=== PATIENT | male | born 1995 | race Hispanic/Latino ===

== ENCOUNTER 2017-11-09 10:36 | Emergency (ER) | payer SELFPAY ==
[2017-11-09 12:34] LABS: Hematocrit 50.8 % (35.5-45.6); Hemoglobin 17.7 gm/dl (11.8-15.2); Mean Corpuscular HGB Conc 35 % (32-34); Mean Corpuscular Hemoglobin 30 pg (28-32); Mean Corpuscular Volume 87 fl (84-94); Platelet Count 189 K/mm3 (140-440); Red Blood Count 5.83 M/mm3 (3.65-5.03); Red Cell Distribution Width 14.2 % (13.2-15.2)
[2017-11-09 12:45] LABS: BUN/Creatinine Ratio 14; Blood Urea Nitrogen 13 mg/dL (9-20); Calcium 9.3 mg/dL (8.4-10.2); Hemolysis Index 11
[2017-11-09 12:48] LABS: Bilirubin,Urine NEG (Negative); Blood,Urine NEG (Negative); Color,Urine Yellow (Yellow); Mucus,Urine 3+ /HPF; Urobilinogen,Urine < 2.0 mg/dL (<2.0)
[2017-11-09] MEDS ORDERED: CLEOCIN PO ONE (15:17)
[2017-11-09] MEDS ORDERED: ZOFRAN ODT PO ONE (15:17)
--- NOTE | 2017-11-09 15:19 | Emergency Department Report ---
HPI - General Chief Complaint: Nausea/Vomiting/Diarrhea Time Seen by Provider: 11/09/17 15:16 - HPI HPI: Patient reported nausea vomiting and diarrhea 3 days and is also here with his significant other who has a same symptoms. Last episode of vomiting was this morning. Patient has no diarrhea today. He is also reporting spider bite to his right forehead. Denies any fever or chills. Reports headache 10 out of 10 in rash to facial area for up to 10. O2 sats are achy. Nothing makes it better nothing makes it worse. He said he was having some abdominal cramping which is not experiencing at present. ED Past Medical Hx - Past Medical History Previous Medical History?: Yes Hx GERD: Yes - Surgical History Past Surgical History?: No - Family History Family history: no significant - Social History Smoking Status: Current Every Day Smoker Substance Use Type: Alcohol - Medications Home Medications: Home Medications Medication Instructions Recorded Confirmed Last Taken Type Dicyclomine [Bentyl] 20 mg PO Q8H PRN #12 tablet 11/09/17 Unknown Rx Ondansetron [Zofran Odt] 4 mg PO Q8HR PRN #12 tab.rapdis 11/09/17 Unknown Rx Sulfamethoxazole/Trimethoprim 1 each PO BID 10 Days #20 tablet 11/09/17 Unknown Rx [Bactrim DS TAB] ED Review of Systems ROS: Stated complaint: MIGRAINE/VOMIT/DIARRHEA/RASH Other details as noted in HPI Comment: All other systems reviewed and negative Constitutional: no symptoms reported ENT: denies: ear pain, throat pain, congestion Respiratory: no symptoms reported Cardiovascular: denies: chest pain, palpitations, dyspnea on exertion, edema, syncope, paroxysmal nocturnal dyspnea Gastrointestinal: denies: abdominal pain, nausea, vomiting, constipation, hematemesis, melena, hematochezia Genitourinary: denies: dysuria, hematuria, testicular pain, testicular mass Musculoskeletal: denies: back pain, joint swelling, arthralgia, myalgia Skin: rash Neurological: denies: headache, numbness, abnormal gait, vertigo Physical Exam - Physical Exam Vital Signs: Vital Signs 11/09/17 11:57 Temperature 97.8 F Pulse Rate 76 Respiratory 18 Rate Blood Pressure 135/58 O2 Sat by Pulse 97 Oximetry Vital Signs 11/09/17 11/09/17 11:57 17:44 Temperature 97.8 F Pulse Rate 76 71 Respiratory 18 16 Rate Blood Pressure 135/58 Blood Pressure 131/60 [Left] O2 Sat by Pulse 97 96 Oximetry General: This is a 22-year-old male well-nourished well-developed in no acute distress. ED Course Vital Signs 11/09/17 11:57 Temperature 97.8 F Pulse Rate 76 Respiratory 18 Rate Blood Pressure 135/58 O2 Sat by Pulse 97 Oximetry Vital Signs 11/09/17 11/09/17 11:57 17:44 Temperature 97.8 F Pulse Rate 76 71 Respiratory 18 16 Rate Blood Pressure 135/58 Blood Pressure 131/60 [Left] O2 Sat by Pulse 97 96 Oximetry - Reevaluation(s) Reevaluation #1: 11/09/17 19:06 Patient given clindamycin 60 mg by mouth, Bentyl 40 mg by mouth and Zofran 8 mg in emergency room and he had no adverse reaction. ED Medical Decision Making - Lab Data Result diagrams: 11/09/17 12:23 11/09/17 12:23 Lab Results 11/09/17 11/09/17 11/09/17 Range/Units 12:23 12:23 Unknown WBC 14.5 H (4.5-11.0) K/mm3 RBC 5.83 H (3.65-5.03) M/mm3 Hgb 17.7 H (11.8-15.2) gm/dl Hct 50.8 H (35.5-45.6) % MCV 87 (84-94) fl MCH 30 (28-32) pg MCHC 35 H (32-34) % RDW 14.2 (13.2-15.2) % Plt Count 189 (140-440) K/mm3 Sodium 141 (137-145) mmol/L Potassium 4.3 (3.6-5.0) mmol/L Chloride 103.2 (98-107) mmol/L Carbon Dioxide 26 (22-30) mmol/L Anion Gap 16 mmol/L BUN 13 (9-20) mg/dL Creatinine 0.9 (0.8-1.5) mg/dL Estimated GFR > 60 ml/min BUN/Creatinine Ratio 14 % Glucose 106 H (75-100) mg/dL Calcium 9.3 (8.4-10.2) mg/dL Urine Color Yellow (Yellow) Urine Turbidity Clear (Clear) Urine pH 5.0 (5.0-7.0) Ur Specific [place] 1.032 H (1.003-1.030) Urine Protein 30 mg/dl (Negative) mg/dL Urine Glucose (UA) Neg (Negative) mg/dL Urine Ketones Tr (Negative) mg/dL Urine Blood Neg (Negative) Urine Nitrite Neg (Negative) Urine Bilirubin Neg (Negative) Urine Urobilinogen < 2.0 (<2.0) mg/dL Ur Leukocyte Esterase Neg (Negative) Urine WBC (Auto) 3.0 (0.0-6.0) /HPF Urine RBC (Auto) 4.0 (0.0-6.0) /HPF U Epithel Cells (Auto) < 1.0 (0-13.0) /HPF Urine Mucus 3+ /HPF - Medical Decision Making ED course: pt here status post nausea vomiting and diarrhea for couple days and had one episode today and said he started feeling better. He is also complaining of spider bite to right forehead. Patient with cellulitis and minor nausea vomiting and diarrhea. Patient given Bentyl cell 40 mg by mouth, Zofran 8 mg by mouth and clindamycin 6 oxygen milligrams by mouth in emergency room without any adverse reaction. I discussed with him his lab results which his white blood causes slight elevated at 14.6 otherwise stable patient with slight dehydration and he said he is drinking Gatorade and was able to tolerated 4 cups of juice in emergency room. Chemistry is normal. Patient discharged home a prescription for Bentyl, Zofran and Bactrim DS and to follow- up at [facility] Critical care attestation.: If time is entered above; I have spent that time in minutes in the direct care of this critically ill patient, excluding procedure time. ED Disposition Clinical Impression: Nausea, vomiting and diarrhea, Abdominal cramps, Cellulitis, face Insect bite Qualifiers: Encounter type: initial encounter Qualified Code(s): W57.XXXA - Bitten or stung by nonvenomous insect and other nonvenomous arthropods, initial encounter Disposition: - TO HOME OR SELFCARE Is pt being admited?: No Does the pt Need Aspirin: No Condition: Stable Instructions: Insect Bite or Sting (ED), Acute Nausea and Vomiting (ED), Acute Diarrhea (ED), Abdominal Pain (ED), Nutrition Tips for Relief of Diarrhea (ED) Additional Instructions: Please follow up at that [facility] in 2-3 days Take antibiotics as prescribed Increase fluid intake Please eat diet to consist of banana, rice, applesauce and toast over the next 3 days. Keep affected area clean and dry Prescriptions: Dicyclomine [Bentyl] 20 mg PO Q8H PRN #12 tablet PRN Reason: stomach cramping Ondansetron [Zofran Odt] 4 mg PO Q8HR PRN #12 tab.rapdis PRN Reason: Nausea And Vomiting Sulfamethoxazole/Trimethoprim [Bactrim DS TAB] 1 each PO BID 10 Days #20 tablet Referrals: PRIMARY CARE, [Primary Care Provider] - 2-3 Days Forms: Work/School Release Form(ED)
[2017-11-09] MEDS ORDERED: BENTYL PO ONE (16:17)
[2017-11-09 17:45] VITALS: BP 131/60
== END 2017-11-09 17:44 | disposition home or self-care (01) ==
LOC: ED 10:36
DX: T63.301A Toxic effect of unspecified spider venom, accidental (unintentional), initial encounter (principal); L03.211 Cellulitis of face; R11.2 Nausea with vomiting, unspecified; R19.7 Diarrhea, unspecified; R10.9 Unspecified abdominal pain; K21.9 Gastro-esophageal reflux disease without esophagitis; F17.200 Nicotine dependence, unspecified, uncomplicated; Y92.89 Other specified places as the place of occurrence of the external cause
CPT/HCPCS: 36415; 80048; 81001; 85027; 99283; Q0162